=== PATIENT | male | born 1960 | race Caucasian/White ===

== ENCOUNTER 2017-11-08 15:50 | Inpatient (IN) | payer OTHER ==
[2017-11-08 19:36] VITALS: BMI 25.0
--- NOTE | 2017-11-08 19:57 | HP ---
CIWA Score - CIWA Score Nausea/Vomitin Muscle Tremors: 2 Anxiety: 2 Agitation: 1-Slight > Activity Paroxysmal Sweats: 1-Minimal Palms Moist Orientation: 1-Uncertain about Date Tacttile Disturbances: 0-None Auditory Disturbances: 1-Very Mild Visual Disturbances: 1-Very Mild Sensitivity Headache: 2-Mild CIWA-Ar Total Score: 13 Admission ROS BHS - HPI Chief Complaint: WITHDRAWAL SYMPTOMS Allergies/Adverse Reactions: Allergies Allergy/AdvReac Type Severity Reaction Status Date / Time codeine Allergy Severe Difficulty Verified 11/08/17 19:47 Breathing History of Present Illness: 56 Y.O. MAN WITH AN EXTENSIVE HISTORY OF ALCOHOL DEPENDENCE IS HERE SEEKING DETOX. HE REPORTS HE COMPLETED DETOX 10 YEARS AGO AT [facility]. LONGEST PERIOD OF SOBRIETY HAS BEEN 18 MONTHS WHILE INCARCERATED. Exam Limitations: No Limitations - Ebola screening Have you traveled outside of the country in the last 21 days: No Have you had contact with anyone from an Ebola affected area: No Have you been sick,other than usual withdrawal symptoms: No - Review of Systems Constitutional: No Symptoms Reported EENT: reports: No Symptoms Reported Respiratory: reports: Shortness of Breath Cardiac: reports: No Symptoms Reported GI: reports: Diarrhea, Abdominal cramping : reports: No Symptoms Reported Musculoskeletal: reports: No Symptoms Reported Integumentary: reports: No Symptoms Reported Neuro: reports: Headache, Tremors, Other (H/O SYNCOPE) Endocrine: reports: No Symptoms Reported Hematology: reports: No Symptoms Reported Psychiatric: reports: Judgement Intact, Mood/Affect Appropiate, Depressed, other (BIPOLAR) Other Systems: Reviewed and Negative Patient History - Patient Medical History Hx Anemia: No Hx Asthma: No Hx Chronic Obstructive Pulmonary Disease (COPD): No Hx Cancer: No Hx Cardiac Disorders: No Hx Congestive Heart Failure: No Hx Hypertension: No Hx Hypercholesterolemia: No Hx Pacemaker: No HX Cerebrovascular Accident: No Hx Seizures: No Hx Dementia: No Hx Diabetes: No Hx Gastrointestinal Disorders: No Hx Liver Disease: No Hx Genitourinary Disorders: No Hx Sexually Transmitted Disorders: No Hx Renal Disease (ESRD): No Hx Thyroid Disease: No Hx Human Immunodeficiency Virus (HIV): No Hx Hepatitis C: No Hx Depression: Yes Hx Suicide Attempt: Yes (15YEARS AGO ATTEMPTED TO OVERDOSE ON MEDICATIONS ) Hx Bipolar Disorder: Yes Hx Schizophrenia: No - Patient Surgical History Past Surgical History: No Hx Orthopedic Surgery: Yes (RIGHT LEG FX REPAIR 15 YRS AGO ) Anesthesia Reaction: No - PPD History Previous Implant?: Yes Documented Results: Negative w/o proof PPD to be Administered?: Yes - Reproductive History Patient is a Female of Child Bearing Age (11 -55 yrs old): No - Smoking Cessation Smoking history: Current every day smoker Have you smoked in the past 12 months: Yes Aproximately how many cigarettes per day: 4 Initiated information on smoking cessation: Yes 'Breaking Loose' booklet given: 11/08/17 - Substance & Tx. History Hx Alcohol Use: Yes Hx Substance Use: No Substance Use Type: Alcohol Hx Substance Use Treatment: Yes (DETOX AND REHAB 10 YEARS AGO AT [facility]) - Substances Abused Alcohol Route: Oral Frequency: Daily Amount used: 24 BEERS Age of first use: 17 Date of Last Use: 11/07/17 Family Disease History - Family Disease History Family Disease History: Diabetes: Mother, CA: Mother, Brother Admission Physical Exam [facility] - Vital Signs Vital Signs: Vital Signs - 24 hr 11/08/17 19:34 Temperature 96.5 F L Pulse Rate 86 Respiratory 20 Rate Blood Pressure 146/88 - Physical General Appearance: Yes: Sweating, Anxious HEENTM: Yes: Hearing grossly Normal, Normocephalic, Normal Voice Respiratory: Yes: Lungs Clear, Normal Breath Sounds, No Respiratory Distress, No Accessory Muscle Use Neck: Yes: No masses,lesions,Nodules, Trachea in good position Breast: Yes: Breast Exam Deferred Cardiology: Yes: Regular Rhythm, Regular Rate Abdominal: Yes: Normal Bowel Sounds, Non Tender, Flat, Soft Genitourinary: Yes: Other (NO COMPLAINTS REPORTED) Back: Yes: Normal Inspection Musculoskeletal: Yes: full range of Motion, Gait Steady, Pelvis Stable Extremities: Yes: Normal Capillary Refill, Normal Inspection, Normal Range of Motion, Non-Tender Neurological: Yes: Alert, Motor Strength 5/5, Normal Mood/Affect, Normal Response Integumentary: Yes: Normal Color, Dry, Warm Lymphatic: Yes: Within Normal Limits - Diagnostic (1) History of syncope Current Visit: Yes Status: Acute Comment: ETOH RELATED (2) Alcohol dependence with uncomplicated withdrawal Current Visit: Yes Status: Acute (3) Nicotine dependence Current Visit: Yes Status: Chronic Cleared for Admission [facility] - Detox or Rehab [facility] Level of Care: Medically Managed Detox Regimen/Protocol: Librium BHS Breath Alcohol Content Breath Alcohol Content: 0 Urine Drug Screen - Results Drug Screen Negative: Yes
[2017-11-08] MEDS ORDERED: IBUPROFEN 400 MG TABLET (FP) PO PRN (20:01)
[2017-11-08] MEDS ORDERED: chlordiazePOXIDE HCL 25 MG CAPSULE PO PRN (20:01)
[2017-11-08] MEDS ORDERED: MENTHOL/PHENOL 1 EACH UD MM PRN (20:01)
[2017-11-08] MEDS ORDERED: guaiFENesin/D-METHORPHAN HB 10 ML UNIT-DOSE CUPS PO PRN (20:01)
[2017-11-08] MEDS ORDERED: LOPERAMIDE HCL 2 MG CAPSULE PO PRN (20:01)
[2017-11-08] MEDS ORDERED: hydrOXYzine PAMOATE 50 MG CAPSULE (FP) PO PRN (20:01)
[2017-11-08] MEDS ORDERED: MAGNESIUM CITRATE 300 ML BOTTLE PO PRN (20:01)
[2017-11-08] MEDS ORDERED: P-EPHED 60MG/TRIPROLIDI 2.5MG TABLET PO PRN (20:01)
[2017-11-08] MEDS ORDERED: MAGNESIUM HYDROX 2400MG/30ML ORAL SUSPENSION 30 ML CUP PO PRN (20:01)
[2017-11-08] MEDS ORDERED: ACETAMINOPHEN 325 MG TABLET (FP) PO PRN (20:01)
[2017-11-08] MEDS ORDERED: MAG HYDROX/AL HYDROX/SIMETH 30 ML UNIT-DOSE CUP PO PRN (20:01)
[2017-11-08] MEDS ORDERED: chlordiazePOXIDE HCL 25 MG CAPSULE PO ONE (20:15)
[2017-11-08] MEDS: THIAMINE HCL 100 MG TABLET (FP) PO SCH (21:25)
[2017-11-08] MEDS ORDERED: MELATONIN 5 MG TABLETS PO PRN (22:00)
[2017-11-08] MEDS: chlordiazePOXIDE HCL 25 MG CAPSULE PO SCH (22:12)
[2017-11-09] MEDS: chlordiazePOXIDE HCL 25 MG CAPSULE PO SCH ×4 (05:36→22:07)
[2017-11-09] MEDS: PRENATAL VITAMINS W/ FOLIC ACID TABLET (FP) PO SCH (10:06)
[2017-11-09 10:18] LABS: HEMATOCRIT 38.5 % (35.4-49); HEMOGLOBIN 13.2 GM/dL (11.7-16.9); MCH 33.4 pg (25.7-33.7); MCHC 34.4 g/dl (32.0-35.9); MEAN CELL VOLUME 97.1 fl (80-96); PLATELET COUNT 177 K/MM3 (134-434); RBC 3.96 M/mm3 (4.00-5.60); RDW 13.2 % (11.9-15.9); WHITE BLOOD COUNT 6.2 K/mm3 (4.0-10.0)
[2017-11-09 10:28] LABS: ALBUMIN 3.6 g/dl (3.4-5.0); ANION GAP 7 (8-16); BLOOD UREA NITROGEN 15 mg/dL (7-18); CALCIUM 8.6 mg/dL (8.5-10.1); CHLORIDE 108 mmol/L (98-107); CO2 28 mmol/L (21-32); GLUCOSE,RANDOM 115 mg/dL (74-106); POTASSIUM 3.6 mmol/L (3.5-5.1); SGOT/AST 25 U/L (15-37); SGPT/ALT 29 U/L (12-78); SODIUM 143 mmol/L (136-145)
[2017-11-09 10:29] LABS: ALK PHOS 77 U/L (45-117); BILIRUBIN,TOTAL 0.5 mg/dL (0.2-1.0); TOT PROT 7.4 g/dl (6.4-8.2)
--- NOTE | 2017-11-09 11:15 | CONSULT ---
[facility] Psychiatric Consult - Data Date of interview: 11/09/17 Admission source: [facility] Identifying data: [place] [facility] [place] 56 y/o male seeking detox treatment on for alcohol dependence.Patient is , a father of one,homeless,unemployed and supported on SSI/SSD benefits. Substance Abuse History: Confirmed by patient in this session.Details in current [facility] report : Smoking history: Current every day smoker. Have you smoked in the past 12 months: Yes. Aproximately how many cigarettes per day: 4. Initiated information on smoking cessation: Yes. 'Breaking Loose' booklet given: 11/08/17. - Substance & Tx. History. Hx Alcohol Use: Yes. Hx Substance Use: No. Substance Use Type: Alcohol. Hx Substance Use Treatment: Yes (DETOX AND REHAB 10 YEARS AGO AT [facility]). - Substances Abused. Alcohol. Route: Oral. Frequency: Daily. Amount used: 24 BEERS. Age of first use: 17. Date of Last Use: 11/07/17 Medical History: GERD. Psychiatric History: Past psychiatric hospitalizations at [facility] + [facility].Diagnosed with Bipolar Disorder.Mr Ahuja reports current medication management at the [facility] in the [place] ( names of medications not recalled).One suicide attempt (15 years ago) via overdose with alcohol combined with psychotropics (comatose for five days as per own report). Physical/Sexual Abuse/Trauma History: Patient denies. Additional Comment: Drug Screen is negative. Mental Status Exam - Mental Status Exam Alert and Oriented to: Time, Place, Person Cognitive Function: Good Patient Appearance: Well Groomed Mood: Nervous, Withdrawn, Anxious Affect: Mood Congruent Patient Behavior: Fatigued, Appropriate, Cooperative Speech Pattern: Clear Voice Loudness: Normal Thought Process: Goal Oriented Thought Disorder: Not Present Hallucinations: Denies Suicidal Ideation: Denies Homicidal Ideation: Denies Insight/Judgement: Poor Sleep: Poorly, Difficulty falling asleep Appetite: Good Muscle strength/Tone: Normal Gait/Station: Normal Psychiatric Findings - Problem List ([place] 1, 2,3) (1) Alcohol dependence with uncomplicated withdrawal Current Visit: Yes Status: Acute (2) Nicotine dependence Current Visit: Yes Status: Chronic (3) Substance induced mood disorder Current Visit: Yes Status: Acute (4) Bipolar disorder Current Visit: Yes Status: Chronic Comment: As per self-report.On medications. (5) Insomnia Current Visit: Yes Status: Acute - Initial Treatment Plan Initial Treatment Plan: Psychoeducation.Detoxification.Sleep hygiene.Search for current medications reveals pharmacy claims for bupropion XL 150 mg/day + risperdal 3 mg/hs + buspar 10 mg po tid + mirtazapine 45 mg/hs at [facility] (dated 10/29/17).Confirmed by patient. Will resume as follows : risperdal 1 mg po bid + remeron 15 mg po hs + wellbutrin XL 150 mg po daily.Buspar withdrawn.Side effects/benefits of each drug are discussed with the patient.Mr Ahuja agrees with this careplan.Observation.
--- NOTE | 2017-11-09 11:35 | EKG ---
Test Reason : Blood Pressure : / mmHG Vent. Rate : 074 BPM Atrial Rate : 074 BPM P-R Int : 158 ms QRS Dur : 100 ms QT Int : 372 ms P-R-T Axes : 036 010 029 degrees QTc Int : 412 ms NORMAL SINUS RHYTHM WITH SINUS ARRHYTHMIA NORMAL ECG NO PREVIOUS ECGS AVAILABLE Confirmed by ASHWIN WEBBER MD ([id number]) on 11/09/2017 11:35:26 AM Referred By: Confirmed By:ASHWIN WEBBER MD
--- NOTE | 2017-11-09 13:08 | PN ---
[facility] CIWA - CIWA Score Nausea/Vomitin-No Nausea/No Vomiting Muscle Tremors: None Anxiety: 5 Agitation: 4-Moderately Restless Paroxysmal Sweats: 2 Orientation: 0-Oriented Tacttile Disturbances: 2-Mild Itch/Numbness/Burn Auditory Disturbances: 0-None Visual Disturbances: 3-Moderate Sensitivity Headache: 0-None Present CIWA-Ar Total Score: 16 BHS Progress Note (SOAP) Subjective: Anxious, Fatigue, Diarrhea, Interrupted Sleep. Objective: PATIENT A & O X 3, OBSERVED AMBULATING ON UNIT. NO ACUTE DISTRESS. 11/09/17 13:05 Vital Signs Temperature 96.5 F L 11/09/17 09:31 Pulse Rate 78 11/09/17 09:31 Respiratory Rate 18 11/09/17 09:31 Blood Pressure 139/91 11/09/17 09:31 O2 Sat by Pulse Oximetry (%) Laboratory Tests 11/09/17 11/09/17 11/09/17 07:40 07:40 07:40 WBC 6.2 RBC 3.96 L Hgb 13.2 Hct 38.5 MCV 97.1 H MCH 33.4 MCHC 34.4 RDW 13.2 Plt Count 177 MPV 9.0 Sodium 143 Potassium 3.6 Chloride 108 H Carbon Dioxide 28 Anion Gap 7 L BUN 15 Creatinine 1.0 Creat Clearance w eGFR > 60 Random Glucose 115 H Calcium 8.6 Total Bilirubin 0.5 AST 25 ALT 29 Alkaline Phosphatase 77 Total Protein 7.4 Albumin 3.6 RPR Titer Nonreactive LABS NOTED. UA RESULTS PENDING. 11/09/17 13:05 Assessment: 11/09/17 13:05 WITHDRAWAL SYMPTOMS. Plan: CONTINUE DETOX. PATIENT REPORTS THAT HE HAS PREVIOUSLY SCHEDULED ENGAGEMENT TO ATTEND TO ON 11/11/2017. AT PATIENT'S REQUEST, DETOX MEDICATION REGIMEN MODIFIED SO THAT PATIENT MAY COMPLETE DETOX REGIMEN AND BE DISCHARGED FROM DETOX IN AM ON 11/11/2017.
[2017-11-09] MEDS: risperiDONE 1 MG TABLET (FP) PO SCH (22:07)
[2017-11-09] MEDS: THIAMINE HCL 100 MG TABLET (FP) PO SCH (22:07)
[2017-11-09] MEDS: MIRTAZAPINE 15 MG TABLET (FP) PO SCH (22:07)
[2017-11-09] MEDS ORDERED: chlordiazePOXIDE HCL 25 MG CAPSULE PO SCH (23:00)
[2017-11-10] MEDS: chlordiazePOXIDE 5 MG CAPSULE PO SCH ×3 (05:15→18:03)
[2017-11-10] MEDS: PRENATAL VITAMINS W/ FOLIC ACID TABLET (FP) PO SCH (10:02)
[2017-11-10] MEDS: risperiDONE 1 MG TABLET (FP) PO SCH ×2 (10:02→22:08)
--- NOTE | 2017-11-10 14:01 | PN ---
S CIWA - CIWA Score Nausea/Vomitin-No Nausea/No Vomiting Muscle Tremors: None Anxiety: 4-Mod. Anxious/Guarded Agitation: 2 Paroxysmal Sweats: 3 Orientation: 0-Oriented Tacttile Disturbances: 2-Mild Itch/Numbness/Burn Auditory Disturbances: 0-None Visual Disturbances: 1-Very Mild Sensitivity Headache: 0-None Present CIWA-Ar Total Score: 12 S Progress Note (SOAP) Subjective: Anxious, Sweating, Interrupted Sleep. Objective: PATIENT A & O X 3, OBSERVED AMBULATING ON UNIT. NO ACUTE DISTRESS. 11/10/17 13:56 Vital Signs Temperature 97.6 F 11/10/17 11:10 Pulse Rate 66 11/10/17 11:10 Respiratory Rate 18 11/10/17 11:10 Blood Pressure 146/97 11/10/17 11:10 O2 Sat by Pulse Oximetry (%) Laboratory Tests 11/09/17 11/09/17 11/09/17 07:40 07:40 07:40 WBC 6.2 RBC 3.96 L Hgb 13.2 Hct 38.5 MCV 97.1 H MCH 33.4 MCHC 34.4 RDW 13.2 Plt Count 177 MPV 9.0 Sodium 143 Potassium 3.6 Chloride 108 H Carbon Dioxide 28 Anion Gap 7 L BUN 15 Creatinine 1.0 Creat Clearance w eGFR > 60 Random Glucose 115 H Calcium 8.6 Total Bilirubin 0.5 AST 25 ALT 29 Alkaline Phosphatase 77 Total Protein 7.4 Albumin 3.6 RPR Titer Nonreactive LABS NOTED. UA RESULTS PENDING. 11/10/17 14:00 Assessment: 11/10/17 13:56 WITHDRAWAL SYMPTOMS. Plan: CONTINUE DETOX. D/C TOMORROW.
[2017-11-10 21:57] LABS: URINE APPEARANCE CLEAR; URINE BILIRUBIN NEGATIVE (<2.0 mg/dL); URINE BLOOD NEGATIVE (NEGATIVE); URINE COLOR STRAW; URINE GLUCOSE (UA) NEGATIVE (NEGATIVE); URINE KETONE NEGATIVE (NEGATIVE); URINE LEUK ESTERASE NEGATIVE (NEGATIVE); URINE NITRITE NEGATIVE (NEGATIVE); URINE PROTEIN NEGATIVE (NEGATIVE); URINE UROBILINOGEN NEGATIVE mg/dL (0.2-1.0)
[2017-11-10] MEDS: chlordiazePOXIDE HCL 10 MG CAPSULE PO SCH (22:08)
[2017-11-10] MEDS: THIAMINE HCL 100 MG TABLET (FP) PO SCH (22:08)
[2017-11-10] MEDS: MIRTAZAPINE 15 MG TABLET (FP) PO SCH (22:08)
[2017-11-10] MEDS ORDERED: chlordiazePOXIDE 5 MG CAPSULE PO SCH (23:00)
[2017-11-11] MEDS: chlordiazePOXIDE HCL 10 MG CAPSULE PO SCH (04:58)
[2017-11-11] MEDS: PRENATAL VITAMINS W/ FOLIC ACID TABLET (FP) PO SCH (10:06)
[2017-11-11] MEDS: risperiDONE 1 MG TABLET (FP) PO SCH ×2 (10:06→22:13)
--- NOTE | 2017-11-11 10:43 | PN ---
BHS Progress Note (SOAP) Subjective: SLIGHT ANXIETY,SWEATS,FATIGUE. Objective: 11/11/17 10:41 Vital Signs Temperature 98.4 F 11/11/17 09:06 Pulse Rate 108 H 11/11/17 09:06 Respiratory Rate 18 11/11/17 09:06 Blood Pressure 139/98 11/11/17 09:06 O2 Sat by Pulse Oximetry (%) Laboratory Last Values WBC 6.2 K/mm3 (4.0-10.0) 11/09/17 07:40 RBC 3.96 M/mm3 (4.00-5.60) L 11/09/17 07:40 Hgb 13.2 GM/dL (11.7-16.9) 11/09/17 07:40 Hct 38.5 % (35.4-49) 11/09/17 07:40 MCV 97.1 fl (80-96) H 11/09/17 07:40 MCH 33.4 pg (25.7-33.7) 11/09/17 07:40 MCHC 34.4 g/dl (32.0-35.9) 11/09/17 07:40 RDW 13.2 % (11.9-15.9) 11/09/17 07:40 Plt Count 177 K/MM3 (134-434) 11/09/17 07:40 MPV 9.0 fl (7.5-11.1) 11/09/17 07:40 Sodium 143 mmol/L (136-145) 11/09/17 07:40 Potassium 3.6 mmol/L (3.5-5.1) 11/09/17 07:40 Chloride 108 mmol/L (98-107) H 11/09/17 07:40 Carbon Dioxide 28 mmol/L (21-32) 11/09/17 07:40 Anion Gap 7 (8-16) L 11/09/17 07:40 BUN 15 mg/dL (7-18) 11/09/17 07:40 Creatinine 1.0 mg/dL (0.7-1.3) 11/09/17 07:40 Creat Clearance w eGFR > 60 (>60) 11/09/17 07:40 Random Glucose 115 mg/dL (74-106) H 11/09/17 07:40 Calcium 8.6 mg/dL (8.5-10.1) 11/09/17 07:40 Total Bilirubin 0.5 mg/dL (0.2-1.0) 11/09/17 07:40 AST 25 U/L (15-37) 11/09/17 07:40 ALT 29 U/L (12-78) 11/09/17 07:40 Alkaline Phosphatase 77 U/L (45-117) 11/09/17 07:40 Total Protein 7.4 g/dl (6.4-8.2) 11/09/17 07:40 Albumin 3.6 g/dl (3.4-5.0) 11/09/17 07:40 Urine Color Straw 11/10/17 20:11 Urine Appearance Clear 11/10/17 20:11 Urine pH 7.0 (5.0-8.0) 11/10/17 20:11 Ur Specific [place] 1.008 (1.001-1.035) 11/10/17 20:11 Urine Protein Negative (NEGATIVE) 11/10/17 20:11 Urine Glucose (UA) Negative (NEGATIVE) 11/10/17 20:11 Urine Ketones Negative (NEGATIVE) 11/10/17 20:11 Urine Blood Negative (NEGATIVE) 11/10/17 20:11 Urine Nitrite Negative (NEGATIVE) 11/10/17 20:11 Urine Bilirubin Negative (<2.0 mg/dL) 11/10/17 20:11 Urine Urobilinogen Negative mg/dL (0.2-1.0) 11/10/17 20:11 Ur Leukocyte Esterase Negative (NEGATIVE) 11/10/17 20:11 RPR Titer Nonreactive (NONREACTIVE) 11/09/17 07:40 Assessment: 11/11/17 10:42 Vital Signs Temperature 98.4 F 11/11/17 09:06 Pulse Rate 108 H 11/11/17 09:06 Respiratory Rate 18 11/11/17 09:06 Blood Pressure 139/98 11/11/17 09:06 O2 Sat by Pulse Oximetry (%) Laboratory Last Values WBC 6.2 K/mm3 (4.0-10.0) 11/09/17 07:40 RBC 3.96 M/mm3 (4.00-5.60) L 11/09/17 07:40 Hgb 13.2 GM/dL (11.7-16.9) 11/09/17 07:40 Hct 38.5 % (35.4-49) 11/09/17 07:40 MCV 97.1 fl (80-96) H 11/09/17 07:40 MCH 33.4 pg (25.7-33.7) 11/09/17 07:40 MCHC 34.4 g/dl (32.0-35.9) 11/09/17 07:40 RDW 13.2 % (11.9-15.9) 11/09/17 07:40 Plt Count 177 K/MM3 (134-434) 11/09/17 07:40 MPV 9.0 fl (7.5-11.1) 11/09/17 07:40 Sodium 143 mmol/L (136-145) 11/09/17 07:40 Potassium 3.6 mmol/L (3.5-5.1) 11/09/17 07:40 Chloride 108 mmol/L (98-107) H 11/09/17 07:40 Carbon Dioxide 28 mmol/L (21-32) 11/09/17 07:40 Anion Gap 7 (8-16) L 11/09/17 07:40 BUN 15 mg/dL (7-18) 11/09/17 07:40 Creatinine 1.0 mg/dL (0.7-1.3) 11/09/17 07:40 Creat Clearance w eGFR > 60 (>60) 11/09/17 07:40 Random Glucose 115 mg/dL (74-106) H 11/09/17 07:40 Calcium 8.6 mg/dL (8.5-10.1) 11/09/17 07:40 Total Bilirubin 0.5 mg/dL (0.2-1.0) 11/09/17 07:40 AST 25 U/L (15-37) 11/09/17 07:40 ALT 29 U/L (12-78) 11/09/17 07:40 Alkaline Phosphatase 77 U/L (45-117) 11/09/17 07:40 Total Protein 7.4 g/dl (6.4-8.2) 11/09/17 07:40 Albumin 3.6 g/dl (3.4-5.0) 11/09/17 07:40 Urine Color Straw 11/10/17 20:11 Urine Appearance Clear 04/29/18 20:11 Urine pH 7.0 (5.0-8.0) 11/10/17 20:11 Ur Specific [place] 1.008 (1.001-1.035) 11/10/17 20:11 Urine Protein Negative (NEGATIVE) 11/10/17 20:11 Urine Glucose (UA) Negative (NEGATIVE) 11/10/17 20:11 Urine Ketones Negative (NEGATIVE) 11/10/17 20:11 Urine Blood Negative (NEGATIVE) 11/10/17 20:11 Urine Nitrite Negative (NEGATIVE) 11/10/17 20:11 Urine Bilirubin Negative (<2.0 mg/dL) 11/10/17 20:11 Urine Urobilinogen Negative mg/dL (0.2-1.0) 11/10/17 20:11 Ur Leukocyte Esterase Negative (NEGATIVE) 11/10/17 20:11 RPR Titer Nonreactive (NONREACTIVE) 11/09/17 07:40 Plan: CONTINUE DETOX
[2017-11-11] MEDS ORDERED: chlordiazePOXIDE HCL 10 MG CAPSULE PO ONE ×2 (11:00→17:00)
--- NOTE | 2017-11-11 20:51 | PN ---
[facility] Progress Note Note: Notified of elevated blood pressure. No significant changes is systolic or diastolic B/P since admission. Patient denies hx of hypertension/elevated blood pressure. Vital Signs (72 hours) 11/08/17 11/09/17 11/09/17 22:10 00:30 03:30 Temperature 97 F L Pulse Rate 83 Respiratory 19 16 18 Rate Blood Pressure 136/94 11/09/17 11/09/17 11/09/17 06:23 09:31 17:21 Temperature 96.4 F L 96.5 F L 95.6 F L Pulse Rate 86 78 73 Respiratory 18 18 18 Rate Blood Pressure 132/89 139/91 140/97 11/09/17 11/10/17 11/10/17 22:13 03:30 06:30 Temperature 96 F L 96.1 F L Pulse Rate 71 97 H Respiratory 18 18 18 Rate Blood Pressure 148/91 131/91 11/10/17 11/10/17 11/10/17 11:10 14:13 17:23 Temperature 97.6 F 96.2 F L 96.0 F L Pulse Rate 66 113 H 107 H Respiratory 18 20 18 Rate Blood Pressure 146/97 127/91 129/96 11/10/17 11/11/17 11/11/17 22:08 00:30 03:30 Temperature 95.2 F L Pulse Rate 89 Respiratory 20 18 18 Rate Blood Pressure 145/96 11/11/17 11/11/17 11/11/17 06:03 09:06 14:00 Temperature 96.5 F L 98.4 F 96.4 F L Pulse Rate 104 H 108 H 111 H Respiratory 18 18 18 Rate Blood Pressure 134/88 139/98 138/96 11/11/17 17:12 Temperature 97.0 F L Pulse Rate 107 H Respiratory 20 Rate Blood Pressure 142/98 Patient denies current headache, visual changes, or weakness. Will continue to monitor. Patient scheduled for discharge in am. Encouraged to f/u elevated blood pressure w/ PCP upon discharge.
[2017-11-11] MEDS: THIAMINE HCL 100 MG TABLET (FP) PO SCH (22:13)
[2017-11-11] MEDS: MIRTAZAPINE 15 MG TABLET (FP) PO SCH (22:13)
[2017-11-11] MEDS ORDERED: chlordiazePOXIDE HCL 10 MG CAPSULE PO SCH (23:00)
[2017-11-12 06:16] VITALS: BP 131/96; PULSE 96; TEMP 96.4
--- NOTE | 2017-11-12 08:44 | PN ---
BHS Progress Note (SOAP) Subjective: DETOX COMPLETED, Objective: 11/12/17 08:43 Vital Signs Temperature 96.4 F L 11/12/17 06:15 Pulse Rate 96 H 11/12/17 06:15 Respiratory Rate 18 11/12/17 06:15 Blood Pressure 131/96 11/12/17 06:15 O2 Sat by Pulse Oximetry (%) Laboratory Tests 11/09/17 11/09/17 11/09/17 07:40 07:40 07:40 WBC 6.2 RBC 3.96 L Hgb 13.2 Hct 38.5 MCV 97.1 H MCH 33.4 MCHC 34.4 RDW 13.2 Plt Count 177 MPV 9.0 Sodium 143 Potassium 3.6 Chloride 108 H Carbon Dioxide 28 Anion Gap 7 L BUN 15 Creatinine 1.0 Creat Clearance w eGFR > 60 Random Glucose 115 H Calcium 8.6 Total Bilirubin 0.5 AST 25 ALT 29 Alkaline Phosphatase 77 Total Protein 7.4 Albumin 3.6 Urine Color Urine Appearance Urine pH Ur Specific [place] Urine Protein Urine Glucose (UA) Urine Ketones Urine Blood Urine Nitrite Urine Bilirubin Urine Urobilinogen Ur Leukocyte Esterase RPR Titer Nonreactive 11/10/17 20:11 WBC RBC Hgb Hct MCV MCH MCHC RDW Plt Count MPV Sodium Potassium Chloride Carbon Dioxide Anion Gap BUN Creatinine Creat Clearance w eGFR Random Glucose Calcium Total Bilirubin AST ALT Alkaline Phosphatase Total Protein Albumin Urine Color Straw Urine Appearance Clear Urine pH 7.0 Ur Specific [place] 1.008 Urine Protein Negative Urine Glucose (UA) Negative Urine Ketones Negative Urine Blood Negative Urine Nitrite Negative Urine Bilirubin Negative Urine Urobilinogen Negative Ur Leukocyte Esterase Negative RPR Titer Assessment: 11/12/17 08:43 MEDICALLY STABLE Plan: D/C'D TODAY
--- NOTE | 2017-11-12 08:45 | DS ---
[facility] Detox Discharge Summary Admission Date: 11/08/17 Discharge Date: 11/12/17 - History Present History: Alcohol Dependence Additional Comments: DETOX COMPLETED. Pertinent Past History: PLEASE SEE DX BELOW - Physical Exam Results Vital Signs: Vital Signs Temperature 96.4 F L 11/12/17 06:15 Pulse Rate 96 H 11/12/17 06:15 Respiratory Rate 18 11/12/17 06:15 Blood Pressure 131/96 11/12/17 06:15 O2 Sat by Pulse Oximetry (%) Pertinent Admission Physical Exam Findings: WITHDRAWAL SX Laboratory Last Values WBC 6.2 K/mm3 (4.0-10.0) 11/09/17 07:40 RBC 3.96 M/mm3 (4.00-5.60) L 11/09/17 07:40 Hgb 13.2 GM/dL (11.7-16.9) 11/09/17 07:40 Hct 38.5 % (35.4-49) 11/09/17 07:40 MCV 97.1 fl (80-96) H 11/09/17 07:40 MCH 33.4 pg (25.7-33.7) 11/09/17 07:40 MCHC 34.4 g/dl (32.0-35.9) 11/09/17 07:40 RDW 13.2 % (11.9-15.9) 11/09/17 07:40 Plt Count 177 K/MM3 (134-434) 11/09/17 07:40 MPV 9.0 fl (7.5-11.1) 11/09/17 07:40 Sodium 143 mmol/L (136-145) 11/09/17 07:40 Potassium 3.6 mmol/L (3.5-5.1) 11/09/17 07:40 Chloride 108 mmol/L (98-107) H 11/09/17 07:40 Carbon Dioxide 28 mmol/L (21-32) 11/09/17 07:40 Anion Gap 7 (8-16) L 11/09/17 07:40 BUN 15 mg/dL (7-18) 11/09/17 07:40 Creatinine 1.0 mg/dL (0.7-1.3) 11/09/17 07:40 Creat Clearance w eGFR > 60 (>60) 11/09/17 07:40 Random Glucose 115 mg/dL (74-106) H 11/09/17 07:40 Calcium 8.6 mg/dL (8.5-10.1) 11/09/17 07:40 Total Bilirubin 0.5 mg/dL (0.2-1.0) 11/09/17 07:40 AST 25 U/L (15-37) 11/09/17 07:40 ALT 29 U/L (12-78) 11/09/17 07:40 Alkaline Phosphatase 77 U/L (45-117) 11/09/17 07:40 Total Protein 7.4 g/dl (6.4-8.2) 11/09/17 07:40 Albumin 3.6 g/dl (3.4-5.0) 11/09/17 07:40 Urine Color Straw 11/10/17 20:11 Urine Appearance Clear 11/10/17 20:11 Urine pH 7.0 (5.0-8.0) 11/10/17 20:11 Ur Specific [place] 1.008 (1.001-1.035) 11/10/17 20:11 Urine Protein Negative (NEGATIVE) 11/10/17 20:11 Urine Glucose (UA) Negative (NEGATIVE) 11/10/17 20:11 Urine Ketones Negative (NEGATIVE) 11/10/17 20:11 Urine Blood Negative (NEGATIVE) 11/10/17 20:11 Urine Nitrite Negative (NEGATIVE) 11/10/17 20:11 Urine Bilirubin Negative (<2.0 mg/dL) 11/10/17 20:11 Urine Urobilinogen Negative mg/dL (0.2-1.0) 11/10/17 20:11 Ur Leukocyte Esterase Negative (NEGATIVE) 11/10/17 20:11 RPR Titer Nonreactive (NONREACTIVE) 11/09/17 07:40 - Treatment Hospital Course: Detox Protocol Followed, Detoxed Safely, Responded well, Discharged Condition Good - Medication Discharge Medications: Ambulatory Orders Buspirone HCl [Buspar -] 10 mg PO TID 11/08/17 Pantoprazole Sodium [Protonix -] 20 mg PO DAILY 11/08/17 - Diagnosis (1) Alcohol dependence with uncomplicated withdrawal Status: Acute (2) History of syncope Status: Acute (3) Insomnia Status: Acute Qualifiers: Insomnia type: unspecified Qualified Code(s): G47.00 - Insomnia, unspecified (4) Nicotine dependence Status: Acute Qualifiers: Nicotine product type: cigarettes Substance use status: in withdrawal Qualified Code(s): F17.213 - Nicotine dependence, cigarettes, with withdrawal - AMA Did Patient Leave Against Medical Advice: No
== END 2017-11-12 06:30 | disposition home or self-care (01) | DRG 897 ==
LOC: YASAS 15:50 → Y3N 19:53
PROVIDERS: ADMIT Internal Medicine; ATTEND Internal Medicine
PROC: HZ2ZZZZ Detoxification Services for Substance Abuse Treatment (ICD-10-PCS; principal; 2017-11-08)
DX: F10.230 Alcohol dependence with withdrawal, uncomplicated (principal); F17.213 Nicotine dependence, cigarettes, with withdrawal; F19.24 Other psychoactive substance dependence with psychoactive substance-induced mood disorder; F31.9 Bipolar disorder, unspecified; G47.00 Insomnia, unspecified; K21.9 Gastro-esophageal reflux disease without esophagitis; Z88.5 Allergy status to narcotic agent; Z86.79 Personal history of other diseases of the circulatory system; Z91.5 Personal history of self-harm
CPT/HCPCS: 36415; 80053; 81003; 85027; 86593; 93005; 93010; J2794